=== PATIENT | male | born 1955 | race Hispanic/Latino ===

== ENCOUNTER 2018-10-13 12:24 | Emergency (ER) | payer OTHER ==
[2018-10-13] MEDS ORDERED: ORPHENADRINE CITRATE 30 MG/ML ML ONE (14:12)
[2018-10-13] MEDS ORDERED: KETOROLAC TROMETHAMINE 30MG/ML ONE (14:13)
[2018-10-13] MEDS ORDERED: LIDOCAINE 5% TOPICAL PATCH TP ONE (14:13)
[2018-10-13 14:21] LABS: APPEARANCE,URINE Clear (CLEAR); BILIRUBIN,URINE Negative (NEGATIVE); COLOR,URINE Dark Yellow (YELLOW); GLUCOSE, URINE (UA) Negative (NEGATIVE); KETONES,URINE Negative (NEGATIVE); LEUKOCYTE ESTERASE ,URINE Trace (NEGATIVE); NITRATE,URINE Negative (NEGATIVE); OCCULT BLOOD,URINE Negative (NEGATIVE); PROTEIN,URINE Negative (NEGATIVE)
[2018-10-13 14:44] LABS: RBC,URINE 0-1 /HPF (0-1)
[2018-10-13 14:45] LABS: BACTERIA,URINE Rare /HPF (None Seen); MUCUS,URINE Few LPF (None Seen); SQUAMOUS EPITHELIAL CELL,UR Rare /HPF (0-2)
== END 2018-10-13 14:34 | disposition left against medical advice (07) ==
LOC: EDH 12:24
DX: M54.5 Low back pain (principal); E78.5 Hyperlipidemia, unspecified; I10 Essential (primary) hypertension; E11.9 Type 2 diabetes mellitus without complications; Z72.0 Tobacco use
CPT/HCPCS: 81001; 99283; J1885; J2360